=== PATIENT | male | born 1990 | race Caucasian/White ===

== ENCOUNTER 2018-08-19 19:58 | Emergency (ER) | payer SELFPAY ==
[~2018-08-19] VITALS: Ht 172.7 cm; Wt 95.3 kg
[2018-08-19 20:30] VITALS: BP 141/81
[2018-08-19 22:11] LABS: BARBITURATE, URINE NEG. ng/ml (NEG <=200); BENZODIAZEPINE, URINE NEG. ng/mL (NEG <=200); CANNABINOID, URINE NEG. ng/mL (NEG <=50); COCAINE, URINE NEG. ng/mL (NEG <=300); OPIATE, URINE NEG. ng/mL (NEG <=2000); PHENCYCLIDINE SCREEN,URINE NEG. ng/mL (NEG <=25)
[2018-08-19 23:30] VITALS: BP 142/76
== END 2018-08-19 22:05 | disposition home or self-care (01) ==
LOC: MED 19:58
DX: L73.9 Follicular disorder, unspecified (principal); F15.10 Other stimulant abuse, uncomplicated
CPT/HCPCS: 80305; 90471; 90715; 99283